=== PATIENT | male | born 1955 | race Caucasian/White ===

== ENCOUNTER 2022-06-09 15:33 | Emergency (ER) | payer SELFPAY ==
[~2022-06-09] VITALS: Ht 167.6 cm; Wt 120.0 kg
[2022-06-09] MEDS ORDERED: methylPREDNISolone SOD SUCC 125 MG/2 ML VL IM ONE (16:30)
[2022-06-09] MEDS ORDERED: EPINEPHrine HCL 1 MG/1 ML AMP SC ONE (16:30)
[2022-06-09] MEDS ORDERED: diphenhdrAMINE HCL 50 MG/1 ML VL IM ONE (16:30)
[2022-06-09 16:35] VITALS: BP 144/85
[2022-06-09] MEDS ORDERED: HYDR50CA PO (16:43)
[2022-06-09] MEDS ORDERED: PRED20TA2 PO (16:43)
== END 2022-06-09 17:01 | disposition home or self-care (01) ==
LOC: ER 15:33
DX: T78.49XA Other allergy, initial encounter (principal); L50.9 Urticaria, unspecified; X58.XXXA Exposure to other specified factors, initial encounter
CPT/HCPCS: 96372; 99284; J0171; J1200; J2930